=== PATIENT | male | born 1985 | race Caucasian/White ===

== ENCOUNTER 2017-01-27 19:56 | Emergency (ER) | payer MEDICAID, OTHER ==
[~2017-01-27] VITALS: Ht 165.1 cm; Wt 81.5 kg
[2017-01-27 20:06] VITALS: Ht 165.1 cm; Wt 81.5 kg
[2017-01-27] MEDS ORDERED: ASPIRIN 81 MG TAB PO STA (21:02)
[2017-01-27] MEDS ORDERED: morphine 4 MG/ML VIAL IV STA (21:26)
[2017-01-27] MEDS ORDERED: ONDANSETRON 4 MG INJ IV STA (21:30)
[2017-01-27] MEDS ORDERED: ONDANSETRON 4 MG INJ ONE (21:30)
--- NOTE | 2017-01-27 21:38 | RADRPT ---
PROCEDURE: XR Chest. CLINICAL INDICATION: chest pain TECHNIQUE: Single AP view of the chest were obtained COMPARISON: None FINDINGS: There are low lung volumes which accentuates the mediastinal structures. The heart is not enlarged. The pulmonary vasculature are unremarkable. The aorta is unremarkable. There is no lung consolida tion, pleural effusion or pneumothorax. There is no acute osseous abnormality. IMPRESSION: No acute disease. there are low lung volumes. RPTAT: AA .Sunny Schwarz MD, Date Time Electronically viewed and signed by .Sunny Schwarz MD, on 01/27/2017 21:38 .J/
[2017-01-27 21:40] LABS: ADD SCAN DIFF NO
[2017-01-27 21:41] LABS: BASOPHIL # 0.1 10^3/ul (0.0-0.1); BASOPHILS % 0.5 % (0.0-2.0); EOSINOPHILS # 0.5 10^3/ul (0.0-0.5); EOSINOPHILS % 4.2 % (0.0-7.0); HEMATOCRIT 41.7 % (42.0-52.0); HEMOGLOBIN 14.7 g/dl (14.0-18.0); LYMPHOCYTES # 4.6 10^3/ul (0.8-2.9); LYMPHOCYTES % 41.6 % (15.0-51.0); MEAN CORPUSCULAR HGB CONC 35.3 g/dl (32.0-37.0); MEAN CORPUSCULAR VOLUME 93.7 fl (82.0-101.0); MEAN PLATELET VOLUME 9.5 fl (7.4-10.4); MONOCYTE # 0.7 10^3/ul (0.3-0.9); MONOCYTES % 6.6 % (0.0-11.0); NEUTROPHIL # 5.2 10^3/ul (1.6-7.5); NEUTROPHILS % 46.7 % (39.0-77.0); PLATELET COUNT 381 10^3/UL (140-415); RED BLOOD COUNT 4.45 10^6/ul (4.70-6.10); RED CELL DISTRIBUTION WIDTH 11.5 % (11.5-14.5); WHITE BLOOD COUNT 11.1 10^3/ul (4.8-10.8)
[2017-01-27 21:55] LABS: INR 0.98
[2017-01-27 21:56] LABS: PARTIAL THROMBOPLASTIN TIME 30.9 Sec (25.0-35.0)
[2017-01-27 22:07] LABS: ANION GAP 8 (8-16); BLOOD UREA NITROGEN 14 mg/dl (7-20); CARBON DIOXIDE 29 mmol/L (21-31); CHLORIDE 108 mmol/L (97-110); CREATININE 0.89 mg/dl (0.61-1.24); GLUCOSE 91 mg/dl (70-220); POTASSIUM 3.9 mmol/L (3.5-5.1); SODIUM 141 mmol/L (135-144)
[2017-01-27 22:17] LABS: TROPONIN-I < 0.012 ng/ml (0.00-0.12)
[2017-01-27] MEDS ORDERED: SOD CHLORIDE 0.9% 100 ML ONE (22:30)
[2017-01-27] MEDS ORDERED: IOHEXOL 350MG/ML 50 ML BTL ONE (22:30)
[2017-01-27] MEDS ORDERED: IOHEXOL 100 ML ONE (22:30)
--- NOTE | 2017-01-27 23:53 | RADRPT ---
PROCEDURE: CT Chest with IV contrast. CLINICAL INDICATION: Left sided pleuritic chest pain radiating to back TECHNIQUE: CT scan of the chest was performed on a multidetector scanner. The patient was scanned following the uncomplicated intravenous administration of 87 cc of Omnipaque 350 contrast. 3D, cor onal and sagittal reformatted images were obtained from the axial source images. Images were reviewe d on a high-resolution PACS workstation. The total exam CTDlvol = 26 mGy and DLP = 601 mGy-cm. One o f the following 3 dose reduction techniques were used: Automated exposure control; adjustment of the mA and/or kV according to patient size; or use of iterative reconstruction technique. COMPARISON: Chest x-ray 01/27/2017 FINDINGS: No filling defects are identified within the pulmonary arteries to suggest pulmonary artery thrombos is. Thoracic aorta is normal caliber without aneurysm or dissection. There is no mediastinal or hi lar lymphadenopathy or mass. Heart is normal size. No pericardial fluid or thickening. There is mild dependent atelectasis. No focal infiltrate. There is no pleural effusion. There is no pneumothorax. There are no fractures. Chest wall is unremarkable. Imaging obtained through the upper abdomen demonstrates mildly prominent 18.5 cm liver. IMPRESSION: 1. No evidence for pulmonary embolus. 2. No aortic aneurysm or dissection. 3. No pleural effusion or pneumothorax. 4. Mild dependent atelectasis. 5. No fracture. 6. Mild hepatomegaly. RPTAT: HMVK .José Miguel Rhoades MD, MD Date Time Electronically viewed and signed by .José Miguel Rhoades MD, MD on 01/27/2017 23:52 .K/
--- NOTE | 2017-01-28 00:09 | ERD ---
ER Documentation Chief Complaint Date/Time DATE: 01/28/17 TIME: 00:06 Chief Complaint Dizziness and nausea with CP no previous history HPI 32-year-old male with no significant past medical history presenting to the ER with chest pain that has been going on since early this morning. He went to work and his chest pain progressively worsened. It has been constant all day, left-sided, radiating to the back, described as aching. It is worse with deep inspiration. The pain is a 10 out of 10. He has had some associated dizziness , nausea, and clamminess. He denies recent illness, cough, abdominal pain, leg swelling or pain. He denies recent travel, immobilization, surgeries, or history of blood clots. He states that he has a remote history of cocaine use but has not been using it for years. He denies any other drug use. ROS All systems reviewed and are negative except as per history of present illness. Medications Home Meds No Active Prescriptions or Reported Meds Allergies Allergies: Coded Allergies: No Known Allergy (Unverified , 01/27/17) PMhx/Soc Medical and Surgical Hx: pt denies Medical Hx, pt denies Surgical Hx Hx Alcohol Use: Yes (occassionally) Hx Substance Use: No (former cocaine/crystal meth use x5 years ago) Hx Tobacco Use: No Smoking Status: Never smoker FmHx Family History: No coronary disease, No diabetes Physical Exam Vitals Vital Signs Date Time Temp Pulse Resp B/P Pulse Ox O2 Delivery O2 Flow Rate FiO2 01/28/17 02:33 99.1 65 20 131/92 99 Room Air 01/28/17 00:00 99.1 74 20 151/109 98 Room Air 01/27/17 23:00 73 20 146/102 100 Room Air 01/27/17 20:53 Nasal Cannula 2 01/27/17 20:53 99.1 92 20 162/112 99 Room Air 01/27/17 20:06 99.1 93 20 159/91 97 Physical Exam Const: Appears to be in mild distress, nontoxic, not diaphoretic Head: Atraumatic Eyes: Normal Conjunctiva, PERRLA, EOMI ENT: Normal External Ears, Nose and Mouth. Neck: Full range of motion. No JVD. No meningismus. Resp: Limited inspiration secondary to pain. Clear to auscultation bilaterally, no retractions Cardio: No chest wall tenderness. Regular rate and rhythm, no murmurs. 2+ distal pulses in all 4 extremities, equal Abd: Soft, non tender, non distended. Normal bowel sounds Skin: No petechiae or rashes Back: No midline or flank tenderness Ext: No cyanosis, or edema Neur: Awake and alert Psych: Normal Mood and Affect Result Diagram: 01/27/17211901/27/172119 Results 24 hrs Laboratory Tests Test 01/27/17 21:20 01/28/17 00:50 White Blood Count 11.110^3/ul Red Blood Count 4.4510^6/ul Hemoglobin 14.7g/dl Hematocrit 41.7% Mean Corpuscular Volume 93.7fl Mean Corpuscular Hemoglobin 33.0pg Mean Corpuscular Hemoglobin Concent 35.3g/dl Red Cell Distribution Width 11.5% Platelet Count 51410^3/UL Mean Platelet Volume 9.5fl Neutrophils % 46.7% Lymphocytes % 41.6% Monocytes % 6.6% Eosinophils % 4.2% Basophils % 0.5% Nucleated Red Blood Cells % 0.0/100WBC Neutrophils # 5.210^3/ul Lymphocytes # 4.610^3/ul Monocytes # 0.710^3/ul Eosinophils # 0.510^3/ul Basophils # 0.110^3/ul Nucleated Red Blood Cells # 0.010^3/ul Prothrombin Time 13.0Sec Prothrombin Time Ratio 1.0 INR International Normalized Ratio 0.98 Activated Partial Thromboplast Time 30.9Sec Sodium Level 141mmol/L Potassium Level 3.9mmol/L Chloride Level 108mmol/L Carbon Dioxide Level 29mmol/L Anion Gap 8 Blood Urea Nitrogen 14mg/dl Creatinine 0.89mg/dl Glucose Level 91mg/dl Calcium Level 9.0mg/dl Troponin I < 0.012ng/ml < 0.012ng/ml Current Medications Medications (Trade) Dose Ordered Sig/Tonia Route PRN Reason Start Time Stop Time Status Last Admin Dose Admin Aspirin (Aspirin) 162 mg ONCE STAT PO 01/27/17 21:02 01/27/17 21:04 DC 01/27/17 21:25 Morphine Sulfate (morphine) 4 mg ONCE STAT IV 01/27/17 21:26 01/27/17 21:28 DC 01/27/17 21:32 Ondansetron HCl (Zofran Inj) 4 mg ONCE STAT IV 01/27/17 21:30 01/27/17 21:31 DC 01/27/17 21:31 Ondansetron HCl (Zofran Inj) 4 mg STK-MED ONCE .ROUTE 01/27/17 21:30 01/27/17 21:31 DC IV Flush 10 ml 10 ml STK-MED ONCE .ROUTE 01/27/17 22:29 01/27/17 22:30 DC 01/27/17 23:21 Sodium Chloride 100 ml @ ud STK-MED ONCE .ROUTE 01/27/17 22:30 01/27/17 22:31 DC 01/27/17 23:22 Iohexol (Omnipaque) 100 ml @ ud STK-MED ONCE .ROUTE 01/27/17 22:30 01/27/17 22:31 DC 01/27/17 23:21 Iohexol (Omnipaque 350mg/ ml) 50 ml STK-MED ONCE .ROUTE 01/27/17 22:30 01/27/17 22:31 DC Procedures/MDM Labs: Mild leukocytosis on CBC, no other significant abnormalities EKG: Rate/Rhythm: Normal Sinus Rhythm with sinus arrhythmia QRS, ST, T-waves: Q waves present in lead III and aVF, T-wave inversions in V6, 3, aVF, no ST elevations or hyperacute T waves Impression: Indeterminate EKG, nonspecific T-wave changes, no STEMI or arrhythmia Repeat EKG: Rate/Rhythm: Normal Sinus Rhythm QRS, ST, T-waves: No changes consistent w/ acute ischemia Impression: No evidence of ischemia or arrhythmia Chest x-ray does not show any acute abnormalities CTA chest: IMPRESSION: 1. No evidence for pulmonary embolus. 2. No aortic aneurysm or dissection. 3. No pleural effusion or pneumothorax. 4. Mild dependent atelectasis. 5. No fracture. 6. Mild hepatomegaly. .José Miguel Rhoades MD, Date Time Electronically viewed and signed by .José Miguel Rhoades MD, on 01/27/2017 23:52 MDM: Patient is presenting with left-sided pleuritic chest pain that has been constant all day and worsening. His vitals are within normal limits other than mild elevation of blood pressure. However I do not suspect hypertensive emergency. Given his exam, aortic dissection is less likely. CTPA was done to evaluate for pulmonary embolism and was normal. EKG showed nonspecific changes. Aspirin was given. Morphine and ondansetron helped with his pain and nausea. Patient's HEART score is 1. My suspicion for ACS is very low. Initial troponin was negative. Repeat troponin after 3 hours was also negative. It is possible his pain is secondary to esophageal spasm versus costochondritis versus coronary artery spasm versus reflux. I believe the patient is stable for discharge at this time with continued outpatient follow- up with PCP within the next 3 days. Return precautions were given. Ibuprofen was recommended for pain in case this is costochondritis. Departure Diagnosis: Primary Impression: Chest pain Chest pain type: chest pain on breathing Qualified Code: R07.1 - Chest pain on breathing Condition: Stable EKZOEY ALVA MD Jan 28, 2017 00:09
[2017-01-28 02:33] VITALS: BP 131/92; PULSE 65; RESP 20; TEMP 99.1
== END 2017-01-28 02:35 | disposition home or self-care (01) ==
LOC: E/R 19:56
DX: R07.1 Chest pain on breathing (principal); R07.9 Chest pain, unspecified
CPT/HCPCS: 71010; 71275; 80048; 84484; 85025; 85610; 85730; 93005; J2270; J2405; Q9967; Z7610; 36415; 96374; 96375